=== PATIENT | female | born 1975 | race Caucasian/White ===

== ENCOUNTER → 2023-11-30 07:50 | Outpatient (REF) | payer OTHER, SELFPAY | LOC: WDC 07:50 | PROVIDERS: ATTENDING PHYSICIAN Nurse Practitioner Adult Health | DX: Z12.31 Encounter for screening mammogram for malignant neoplasm of breast (principal); Z00.00 Encounter for general adult medical examination without abnormal findings | CPT/HCPCS: 77063; 77067 ==

== ENCOUNTER 2025-02-13 13:47 | Emergency (ER) | payer OTHER, SELFPAY ==
[2025-02-13 13:49] VITALS: BP 140/87
--- NOTE | 2025-02-13 14:42 | ED.GENMED ---
History of Present Illness
General
Chief Complaint: Headache
Source: patient
Exam Limitations: none
Time Seen by Provider: 02/13/25 14:30
Nursing documentation reviewed up to this point in time: agreed with
History of Present Illness
History of Present Illness:
49-year-old female with history of benign brain mass presents to the emergency department for evaluation of headache. Patient reports that last night she started having 'blurry vision' in her left eye that lasted for a few hours. She went to bed
and this morning woke up with left-sided headache that has been consistent all day although she did have some transient improvement after taking Advil. She says that visual symptoms have resolved today. She denies any nausea or vomiting. Denies
any neck pain or stiffness. She denies any loss of vision, speech difficulties, weakness or numbness in extremities. She denies any trauma to the head. She says she has not had similar symptoms in the past. She called her primary doctor who
recommended she come to the ER for evaluation. She does have a history of apparently benign brain mass that was discovered incidentally years ago during trauma imaging. She says that she gets regular MRIs and mass has been stable and never caused
any symptoms.
Past History
Past History
ED Past Medical History: None
ED Past Surgical History: None
Social History
Tobacco: Non-smoker
Alcohol: None
Drug: None
Living: with family
Review of Systems
Review of Systems
All Other Systems: ROS reviewed and negative except as documented in HPI and ROS
Constitutional: Denies fever or chills
Respiratory: Denies cough or trouble breathing
Cardiac: Denies chest pain
ABD/GI: Denies abdominal pain, nausea or vomiting
: Denies flank pain
Musculoskeletal: Denies neck pain or back pain
Neurological: Reports headache; Denies dizzy, weakness or numbness
Phy Exam
Physical Exam
Physical Exam:
General: Awake, alert, oriented x3; no acute distress
Head: Normocephalic, atraumatic
Eyes: Conjunctiva normal, EOMI, pupils equal round and reactive to light bilaterally; on fluorescein exam no corneal abrasions or dendritic lesions bilaterally, negative Sidel sign; eye pressure testing R L
Throat: Airway intact, handling secretions
Neck: Trachea midline, supple without meningismus, no midline cervical tenderness, full range of motion without pain
Lungs: Breathing comfortably with no distress, no tachypnea or hypoxia
Heart: Regular rate
Neuro: Cranial nerves intact, speech fluid without dysarthria or aphasia, motor and sensory intact in all extremities both proximally and distally, ambulatory here without ataxia
Skin: Warm and dry
Extremities: Warm and well-perfused with no edema
Scores
Heart Failure Risk
Heart Failure Risk Score: Not Applicable
Heart Score for Chest Pain Patients
STEMI patient?: Not applicable
Withdrawal Assessment of Alcohol
Withdrawal Assessment Completed?: Not applicable
Course
Orders/Labs/Results
Orders:
Orders
02/13/25 14:31
CT Head W/o Iv Contrast Urgent
Comment:
Reason For Exam: headache, known brain mass
Test Result ONCE
02/13/25 14:56
Visual Acuity- Treatment ONCE
02/13/25 14:58
COVID-19 Antigen Urgent
Source: Nasal Swab
Complete Blood Count/With Diff Urgent
Comprehensive Metabolic Panel Urgent
HCG, Serum Qualitative Screen Urgent
Influenza A+B Rapid Molecular Urgent
CINDY Source: Nasal Swab
Specimen Description:
02/13/25 14:58
02/13/25 14:58
Vital Signs
Initial and Last Documented VS:
Initial Vital Signs
Temp Pulse Resp BP Pulse Ox
37.1 C 96 18 140/87 100
02/13/25 13:49 02/13/25 13:49 02/13/25 13:49 02/13/25 13:49 02/13/25 13:49
Last Documented Vital Signs
Temp Pulse Resp BP Pulse Ox
37.1 C 96 18 140/87 100
02/13/25 13:49 02/13/25 13:49 02/13/25 13:49 02/13/25 13:49 02/13/25 14:47
MDM/Problems Addressed
Differential Diagnosis Includes:
Migraine headache, tension headache, brain mass/brain bleed; nothing clinically to suggest subarachnoid hemorrhage, meningitis or other emergent pathology
MDM/Problems Addressed:
49-year-old female who has a history of apparently benign and stable brain mass presents to the emergency department with headache started this morning after last night having some abnormal vision in the left eye. Visual symptoms resolved today.
Vitals and exam are as above. Plan to check basic labs, CT head given history of brain mass. Reassess after the above.
Labs reviewed and unremarkable. CT head no acute abnormalities. Suspect likely migraine, stable for discharge with supportive care. Patient declined pain medication here. Spoke about return precautions in detail and all questions answered.
Chronic conditions affecting care:
Chronic brain mass
*Radiology
Radiology exam reviewed: radiology read reviewed
*Pulse Oximetry
SaO2: 100
Oxygen Mode of Delivery: Room air
Patient hypoxic: no (100%)
*Critical Care Note
Total Time (30-74mins, 75-104mins- exclusive of procedures): Not Applicable
Data Reviewed
Review of Other/Old Records Reveals: Radiology Studies
Source: patient and records
ED Attending Note
-
Portions of this chart may have been created with voice recognition software.� Occasional wrong word or��sound alike� substitutions may have occurred due to the inherent limitations of voice recognition software.
Discharge Plan
Departure
Patient Disposition: Home (Routine Discharge)
Date of Disposition: 02/13/25
Time of Disposition: 17:48
Patient with high blood pressure during this ER visit?: No
Discharge Problem:
Headache
Instructions: Headache, Adult (DC)
Prescriptions:
No Action
oxycodone-acetaminophen 5 MG/325 MG tablet
1 tab PO Q4HPRN PRN (Reason: pain) Qty: 10 0RF
tamsulosin 0.4 MG capsule
0.4 mg PO DAILY Qty: 7 0RF
Referrals:
Zayra Chauhan CRNP [Family Provider, Internal Medicine] - Follow up in 5-7 days
Activity Restrictions/Additional Instructions:
Thank you for visiting the Emergency Department at [facility].
1. Please schedule a follow up appointment as directed. Call first thing tomorrow morning to make an appointment.
2. If indicated, please take your medications as instructed and indicated on discharge paperwork.
3. If any of your symptoms do not improve, or persist, or become more severe within 6-12 hours, please return to the emergency department for further care.
4. Please return to the emergency department if you develop a headache, neck pain/stiffness, fever greater than 100.4F, chest pain, shortness of breath, persistent nausea, vomiting, slurred speech, difficulty walking, numbness/tingling, weakness,
signs of infection or any other symptoms that are worrisome to you.
Please call [phone] if you have any questions.
Interventions
Interventions:
*Risk Screen - Suicide Last Done: 02/13/25 13:49
*Neglect/Abuse Screening Last Done: 02/13/25 13:49
ED- Neurological Assessment Last Done: 02/13/25 15:05
Discharge Date and Time
Print Language: ARMENIAN
[2025-02-13 15:11] LABS: Hematocrit 37.9 % (37.0-47.0); Hemoglobin 12.6 g/dL (12.0-16.0); Mean Corp Hgb Conc. 33.2 g/dL (33.0-37.0); Mean Corpuscular Volume 87.9 fL (81.0-99.0); Nucleated Red Blood Cells % 0 %; Platelet Count 241 10^3/uL (130-400); Red Cell Dist. Width 11.9 % (11.5-14.5)
[2025-02-13 15:19] LABS: HCG, Serum Qualitative Screen Negative
[2025-02-13 15:29] LABS: ALT (SGPT) 13 U/L (0-35); AST (SGOT) 19 U/L (14-36); Albumin 4.2 g/dl (3.5-5.0); Alkaline Phosphatase 50 U/L (38-126); Blood Urea Nitrogen 12 mg/dl (7-17); Calcium 9.3 mg/dl (8.4-10.2); Carbon Dioxide 28 mmol/L (22-30); Chloride 104 mmol/L (98-107); Glucose 91 mg/dl (70-99); Potassium 4.2 mmol/L (3.5-5.1); Sodium 135 mmol/L (135-145); Total Protein 6.6 g/dl (6.3-8.2); eGFR > 60.00
[2025-02-13 15:37] LABS: COVID-19 Antigen Negative (Negative)
== END 2025-02-13 18:06 | disposition home or self-care (01) ==
LOC: EMR 13:47
PROVIDERS: EMERGENCY PHYSICIAN Emergency Medicine; FAMILY PHYSICIAN Nurse Practitioner Adult Health
DX: R51.9 Headache, unspecified (principal); Z86.011 Personal history of benign neoplasm of the brain
CPT/HCPCS: 99284; 70450; 80053; 84703; 85025; 87502; 87811